=== PATIENT | female | born 1960 | race Two or more races ===

== ENCOUNTER 2017-05-12 15:25 | Emergency (ER) | payer OTHER ==
[~2017-05-12] VITALS: Ht 160 cm; Wt 58.5 kg
[2017-05-12 16:11] LABS: Albumin 3.7 g/dL (3.4-5.0); BUN/Creatinine Ratio 26.4; Bilirubin, Total 0.3 mg/dL (0.2-1.0); Calcium 8.4 mg/dL (8.5-10.1); Total Protein 8.1 g/dL (6.4-8.2)
[2017-05-12 16:20] LABS: Basophils # (auto) 0.1 uL; Basophils % (auto) 1.4 % (0.0-2.0); Eosinophils # (auto) 0.2 uL; Eosinophils % (auto) 4.2 % (0.0-7.0); Hematocrit 33.4 % (36.0-46.0); Lymphocytes # (auto) 1.9 uL; Lymphocytes % (auto) 35.9 % (10.0-50.0); Mean Corpuscular Hemoglobin 30.4 pg (28.0-32.0); Mean Corpuscular Hgb Conc. 33.1 g/dL (32.0-36.0); Mean Corpuscular Volume 91.9 fL (80.0-100.0); Monocytes # (auto) 0.4 uL; Monocytes % (auto) 7.3 % (0.0-12.0); Neutrophils # (auto) 2.7 uL; Neutrophils % (auto) 51.2 % (37.0-80.0); Nucleated Red Blood Cells % 0.1 %; Platelet Count (auto) 235 10^3/uL (140-450); Red Blood Cells 3.63 10^6/uL (4.0-5.20); Red Cell Distribution Width 13.3 % (11.8-14.3); White Blood Cell 5.3 10^3/uL (4.4-10.8)
[2017-05-12 17:40] VITALS: BP 105/44
== END 2017-05-12 18:18 | disposition home or self-care (01) ==
LOC: ER 15:34
DX: N28.9 Disorder of kidney and ureter, unspecified (principal); E11.9 Type 2 diabetes mellitus without complications
CPT/HCPCS: 36415; 71046; 80053; 85025; 93005

== ENCOUNTER 2018-02-13 10:16 | Emergency (ER) | payer OTHER ==
[~2018-02-13] VITALS: Ht 152.4 cm; Wt 59.9 kg
[2018-02-13 12:00] VITALS: BP 106/53
== END 2018-02-13 12:54 | disposition home or self-care (01) ==
LOC: ER 10:17
DX: S90.32XA Contusion of left foot, initial encounter (principal); E11.9 Type 2 diabetes mellitus without complications; W22.8XXA Striking against or struck by other objects, initial encounter; Y93.89 Activity, other specified; Y99.8 Other external cause status; Y92.89 Other specified places as the place of occurrence of the external cause
CPT/HCPCS: 73630

== ENCOUNTER 2019-03-05 07:35 | Emergency (ER) | payer OTHER ==
[~2019-03-05] VITALS: Ht 160 cm; Wt 64.4 kg
[2019-03-05 08:15] LABS: Basophils # (auto) 0 uL; Basophils % (auto) 0.6 % (0.0-2.0); Eosinophils # (auto) 0.2 uL; Eosinophils % (auto) 4.6 % (0.0-7.0); Hematocrit 36.1 % (36.0-46.0); Hemoglobin 12.2 g/dL (12.2-16.2); Lymphocytes # (auto) 1.4 uL; Lymphocytes % (auto) 36.6 % (10.0-50.0); Mean Corpuscular Hemoglobin 31.9 pg (28.0-32.0); Mean Corpuscular Hgb Conc. 33.8 g/dL (32.0-36.0); Mean Corpuscular Volume 94.4 fL (80.0-100.0); Monocytes # (auto) 0.4 uL; Monocytes % (auto) 9.4 % (0.0-12.0); Neutrophils # (auto) 1.9 uL; Neutrophils % (auto) 48.8 % (37.0-80.0); Nucleated Red Blood Cells % 0.1 %; Platelet Count (auto) 187 10^3/uL (140-450); Red Blood Cells 3.82 10^6/uL (4.0-5.20); Red Cell Distribution Width 14.1 % (11.8-14.3); White Blood Cell 3.9 10^3/uL (4.4-10.8)
[2019-03-05 08:31] LABS: Urine Bacteria NONE SEEN /hpf (None Seen); Urine Blood Negative /uL (Negative); Urine WBC <1 /hpf (0 - 5)
[2019-03-05] MEDS ORDERED: SODIUM CHLORIDE 0.9% 1,000 ML IV ONE (08:35)
[2019-03-05 08:42] LABS: Albumin 3.7 g/dL (3.4-5.0); BUN/Creatinine Ratio 20.7; Calcium 8.8 mg/dL (8.5-10.1); Potassium 4.7 mmol/L (3.5-5.1)
[2019-03-05 08:45] LABS: Bilirubin, Total 0.3 mg/dL (0.2-1.0); Total Protein 8.1 g/dL (6.4-8.2)
[2019-03-05] MEDS ORDERED: KETOROLAC TROMETH 30 MG/ML 1ML VIAL IV ONE (08:45)
[2019-03-05] MEDS ORDERED: METOCLOPRAMIDE HCL 5MG/ml INJ 2ml VIAL IV ONE (08:45)
[2019-03-05 10:04] VITALS: BP 135/42
== END 2019-03-05 10:25 | disposition home or self-care (01) ==
LOC: ER 07:35
DX: K80.20 Calculus of gallbladder without cholecystitis without obstruction (principal); E11.21 Type 2 diabetes mellitus with diabetic nephropathy; E78.5 Hyperlipidemia, unspecified
CPT/HCPCS: 36415; 71046; 76705; 80053; 81001; 82150; 83690; 83735; 85025; 93005; 96361; 96374; 96375; 99284; J1885; J2765

== ENCOUNTER 2019-03-19 08:36 | Emergency (ER) | payer OTHER ==
[~2019-03-19] VITALS: Ht 160 cm; Wt 64.4 kg
[2019-03-19 09:11] VITALS: BP 102/40
[2019-03-19] MEDS ORDERED: TETRACAINE HCL 0.5% OPTH(EYE) SOLN 4ML RIGHTEYE ONE (10:15)
[2019-03-19] MEDS ORDERED: FLUORESCEIN SOD 1 MG TEST STRIP RIGHTEYE ONE (10:15)
== END 2019-03-19 10:47 | disposition home or self-care (01) ==
LOC: ER 08:36
DX: B02.9 Zoster without complications (principal); R51 Headache

== ENCOUNTER 2023-10-15 15:35 | Emergency (ER) | payer OTHER, SELFPAY ==
[~2023-10-15] VITALS: Ht 160 cm; Wt 58.0 kg
[~2023-10-15 15:35] MED LIST: ATOR-47 PO; GLIP10TA9 PO; INSUINJ37 SC; PATI1POW PO
[2023-10-16] MEDS ORDERED: IBUP-1454 PO (00:22)
[2023-10-16 00:44] VITALS: BP 130/76; PULSE 74; RESP 17; TEMP 98.4; O2SAT 98
== END 2023-10-15 16:29 | disposition home or self-care (01) ==
LOC: ER 15:43
DX: S92.351A Displaced fracture of fifth metatarsal bone, right foot, initial encounter for closed fracture (principal); E11.9 Type 2 diabetes mellitus without complications; E78.5 Hyperlipidemia, unspecified; W22.8XXA Striking against or struck by other objects, initial encounter; Y93.89 Activity, other specified; Y92.89 Other specified places as the place of occurrence of the external cause; Y99.8 Other external cause status
CPT/HCPCS: 29515; 73630

== ENCOUNTER → 2024-06-06 | Outpatient (CLI) | payer OTHER ==
[~2024-06-06] MED LIST changes: +IBUP-1454 PO
[2024-06-06 13:49] LABS: Basophils # (auto) 0 10 ^3/uL (0-0.2); Basophils % (auto) 0.6 % (0.0-2.0); Eosinophils # (auto) 0.1 10 ^3/uL (0-0.8); Eosinophils % (auto) 2.5 % (0.0-7.0); Hematocrit 33.3 % (36.0-46.0); Hemoglobin 10.9 g/dL (12.2-16.2); Lymphocytes # (auto) 1.6 10 ^3/uL (0.4-5.4); Lymphocytes % (auto) 35.3 % (10.0-50.0); Mean Corpuscular Hemoglobin 30.1 pg (28.0-32.0); Mean Corpuscular Hgb Conc. 32.6 g/dL (32.0-36.0); Mean Corpuscular Volume 92.2 fL (80.0-100.0); Monocytes # (auto) 0.3 10 ^3/uL (0-1.3); Monocytes % (auto) 6.1 % (0.0-12.0); Neutrophils # (auto) 2.6 10 ^3/uL (1.6-8.6); Neutrophils % (auto) 55.5 % (37.0-80.0); Platelet Count (auto) 190 10^3/uL (140-450); Red Blood Cells 3.61 10^6/uL (4.0-5.20); Red Cell Distribution Width 12.7 % (11.8-14.3); White Blood Cell 4.7 10^3/uL (4.4-10.8)
[2024-06-06 14:17] LABS: Alanine Aminotransferase 12 U/L (7-40); Albumin 4.4 g/dL (3.2-4.8); Alkaline Phosphatase 114 U/L (46-116); Anion Gap 7 (5-15); BUN/Creatinine Ratio 16.1 (10.0-20.0); Bilirubin, Total 0.4 mg/dL (0.2-1.0); Calcium 9.4 mg/dL (8.7-10.4); Carbon Dioxide 28 mmol/L (20-31); Chloride 99 mmol/L (98-107); Total Protein 7.6 g/dL (5.7-8.2); Triglycerides 105 mg/dL (< 150)
[2024-06-06 14:19] LABS: Aspartate Aminotransferase 12 U/L (13-40); Blood Urea Nitrogen 35 mg/dL (9-23); Cholesterol 221 mg/dL (< 200); Glucose 259 mg/dL (74-106); HDL Cholesterol 79 mg/dL (40-59); LDL Cholesterol 127 mg/dL (< 100); Sodium 134 mmol/L (136-145)
[2024-06-06 14:34] LABS: Urine Bacteria FEW /hpf (None Seen); Urine Blood TRACE /uL (Negative); Urine Clarity Clear (Clear); Urine Color Light-Yellow (Yellow); Urine Protein, UAD 1+ (Negative); Urine Squamous Epithelial Cell FEW /hpf (<5); Urine Urobilinogen Normal (Negative); Urine WBC 11 /HPF (0-5); Urine pH 5.5 (5.0-9.0)
[2024-06-06 14:58] LABS: Uric Acid 6.3 mg/dL (3.1-7.8)
== END | disposition home or self-care (01) ==
LOC: LAB 13:26
PROVIDERS: ATTEND Family Medicine
DX: E11.8 Type 2 diabetes mellitus with unspecified complications (principal); E78.2 Mixed hyperlipidemia; K59.00 Constipation, unspecified; Z00.00 Encounter for general adult medical examination without abnormal findings
CPT/HCPCS: 36415; 80053; 80061; 81001; 82306; 82607; 83036; 83540; 83550; 83735; 84403; 84443; 84550; 85025; 87086

== ENCOUNTER 2024-06-20 08:11 | Inpatient (IN) | payer OTHER ==
[~2024-06-20] VITALS: Ht 160 cm; Wt 63.5 kg
[2024-06-20 09:06] VITALS: PULSE 74; RESP 16; O2SAT 97
[2024-06-20] MEDS: SODIUM CHLORIDE 0.9% 1,000 ML IV ONE ×2 (09:19→10:44)
[2024-06-20] MEDS: ACETAMINOPHEN 325 MG TAB PO ONE (09:19)
--- NOTE | 2024-06-20 09:25 | ED.PDOC ---
History of Present Illness HPI Comments 63 year old female presents to the ED with a chief complaint of pelvic pain onset 2 weeks. Patient states she began experiencing pelvic pain about 2 weeks ago, worsen today (06/20/24). Patient also noticed constipation, last bowel movement was about 3 days ago. PMHx DM, HLD. Denies nausea, vomiting, diarrhea, headache, dysuria, hematuria, frequency, chest pain, shortness of breath, fevers, chills. No other symptoms or modifying factors present at this time. Chief Complaint: Pelvic Pain Time Seen by MD: 09:08 Primary Care Provider: STEVIE Rodriguez Notes: Medications, Allergies Allergies: Coded Allergies: NO KNOWN ALLERGIES (Unverified , 01/05/20) Home Meds Active Scripts Ibuprofen (Ibuprofen) 600 Mg Tab, 1 TAB PO Q6HP PRN, #30 TAB Prov:STELLA BAILON PAC 10/16/23 Reported Medications Insulin Glargine (Lantus Solostar) 100 Unit/Ml Inj, 30 UNIT SC 01/06/20 Atorvastatin Calcium (ATORVASTATIN CALCIUM) 80 Mg Tab, 1 TAB PO DAILYPRN 01/06/20 Glipizide (Glipizide) 10 Mg Tab, 1 TAB PO BID 01/06/20 Patiromer Sorbitex Calcium (Veltassa) 8.4 Gm Pow, 1 PKT PO DAILYPRN 01/06/20 Information Source: Patient Mode of Arrival: Ambulatory Severity: Moderate Timing: Weeks Duration: Since onset Prehospital treatment: None Past Medical History PAST MEDICAL HISTORY: DM, High Lipids Surgical History: Denies all surgeries STORAGE GARAGE MANAGER History: No Pertinent STORAGE GARAGE MANAGER History Family History Family History: Reviewed,noncontributory to illness Social History Smoker: Non-Smoker Alcohol: Denies ETOH Use Drugs: Denies Drug Use Lives In: Home Constitutional: denies: chills, diaphoresis, fatigue, fever, malaise, sweats, weakness, others EENTM: denies: blurred vision, double vision, ear bleeding, ear discharge, ear drainage, ear pain, ear ringing, eye pain, eye redness, hearing loss, mouth pain, mouth swelling, nasal discharge, nose bleeding, nose congestion, nose pain, photophobia, tearing, throat pain, throat swelling, voice changes, others Respiratory: denies: cough, hemoptysis, orthopnea, SOB at rest, shortness of breath, SOB with excertion, stridor, wheezing, others Cardiovascular: denies: chest pain, dizzy spells, diaphoresis, Dyspnea on exertion, edema, irregular heart beat, left arm pain, lightheadedness, palpitations, PND, syncope, others Gastrointestinal: reports: abdominal pain (pelvic ), constipated, others (pelvic pain); denies: abdomen distended, blood streaked bowels, diarrhea, d ysphagia, difficulty swallowing, hematemesis, melena, nausea, poor appetite, poor fluid intake, rectal bleeding, rectal pain, vomiting Genitourinary: denies: abnormal vagina bleeding, burning, dyspareunia, dysuria, flank pain, frequency, hematuria, incontinence, pain, , vagina discharge, urgency, others Neurological: denies: dizziness, fainting, headache, left sided numbness, left sided weakness, numbness, paresthesia, pre-existing deficit, right sided num bness, right sided weakness, seizure, speech problems, tingling, tremors, weakness, others Musculoskeletal: denies: back pain, gout, joint pain, joint swelling, muscle pain, muscle stiffness, neck pain, others Integumetry: denies: bruises, change in color, change in hair/nails, dryness, laceration, lesions, lumps, rash, wounds, others Allergic/Immunocompromised: denies: Difficulty Healing, Frequent Infections, Hives, Itching, others Hematologic/Lymphatic: denies: anemia, blood clots, easy bleeding, easy bruising, swollen glands, others Endocrine: denies: excessive hunger, excessive sweating, excessive thirst, excessive urination, flushing, intolerance to cold, intolerance to heat, unexplained weight gain, unexplained weight loss, others Psychiatric: denies: anxiety, bipolar disorder, depression, hopeless, panic disorder, schizophrenia, sleepless, suicidal, others All Other Systems: Reviewed and Negative Physical Exam General Appearance: No Apparent Distress, Normal HEENT: Normal ENT Inspection, Pharynx Normal, TMs Normal Neck: Full Range of Motion, Non-Tender, Normal, Normal Inspection Respiratory: Chest Non-Tender, Lungs Clear, No Accessory Muscle Use, No Respiratory Distress, Normal Breath Sounds Cardiovascular: No Edema, No JVD, No Murmur, No Gallop, Normal Peripheral Pulses, Regular Rate/Rhythm Breast Exam: Deferred Gastrointestinal: No Organomegaly, Non Tender, No Pulsatile Mass, Normal Bowel Sounds, Soft, Other (L CVA Tenderness) Genitalia: Deferred Pelvic: Deferred Rectal: Deferred Extremities: No calf tenderness, Normal capillary refill, Normal inspection, Normal range of motion, Non-tender, No pedal edema Musculoskeletal : Apperance: Normal Neurologic: Alert, director fundraising II-XII nml as Tested, No Motor Deficits, Normal Affect, Normal Mood, No Sensory Deficits Cerebellar Function: Normal Reflexes: Normal Skin: Dry, Normal Color, Warm Lymphatic: No Adenopathy Was a procedure done? Was a procedure done?: No Differential Dx Considerations may include: Acute cystitis, viral syndrome, pyelonephritis X-Ray, Labs, Meds, VS Vital Signs Date Time Temp Pulse Resp B/P (MAP) Pulse Ox O2 Delivery O2 Flow Rate FiO2 06/20/24 09:06 74 16 172/84 (113) 97 06/20/24 09:06 74 16 97 Room Air* 0 21 06/20/24 08:20 97.9 77 18 119/46 (70) 96 Lab Test 06/20/24 09:23 06/20/24 08:16 Range/Units White Blood Count 3.7 L 4.4-10.8 10^3/uL Red Blood Count 3.42 L 4.0-5.20 10^6/uL Hemoglobin 10.6 L 12.2-16.2 g/dL Hematocrit 31.6 L 36.0-46.0 % Mean Corpuscular Volume 92.3 80.0-100.0 fL Mean Corpuscular Hemoglobin 30.8 28.0-32.0 pg Mean Corpuscular Hemoglobin Concent 33.4 32.0-36.0 g/dL Red Cell Distribution Width 12.6 11.8-14.3 % Platelet Count 192 140-450 10^3/uL Mean Platelet Volume 8.1 6.9-10.8 fL Neutrophils (%) (Auto) 49.8 37.0-80.0 % Lymphocytes (%) (Auto) 38.4 10.0-50.0 % Monocytes (%) (Auto) 7.8 0.0-12.0 % Eosinophils (%) (Auto) 3.1 0.0-7.0 % Basophils (%) (Auto) 0.9 0.0-2.0 % Neutrophils # (Auto) 1.9 1.6-8.6 10 ^3/uL Lymphocytes # (Auto) 1.4 0.4-5.4 10 ^3/uL Monocytes # (Auto) 0.3 0-1.3 10 ^3/uL Eosinophils # (Auto) 0.1 0-0.8 10 ^3/uL Basophils # (Auto) 0 0-0.2 10 ^3/uL Nucleated Red Blood Cells 0.1 % Sodium Level 133 L 136-145 mmol/L Potassium Level 5.0 3.5-5.1 mmol/L Chloride Level 100 98-107 mmol/L Carbon Dioxide Level 27 20-31 mmol/L Anion Gap 6 5-15 Blood Urea Nitrogen 32 H 9-23 mg/dL Creatinine 2.24 H 0.550-1.02 mg/dL Glomerular Filtration Rate Calc 24 >90 mL/min BUN/Creatinine Ratio 14.3 10.0-20.0 Serum Glucose 309 H 74-106 mg/dL Calcium Level 9.2 8.7-10.4 mg/dL Urine Color Colorless Yellow Urine Clarity Clear Clear Urine pH 6.0 5.0-9.0 Urine Specific [place] 1.007 1.001-1.035 Urine Protein Trace H Negative Urine Ketones Negative Negative Urine Blood Negative Negative /uL Urine Nitrite 2+ H Negative Urine Bilirubin Negative Negative Urine Urobilinogen Normal Negative mg/dL Urine Leukocyte Esterase 1+ Negative /uL Urine RBC 1 0 - 4 /hpf Urine Microscopic WBC 11 H 0-5 /HPF Urine Squamous Epithelial Cells None seen <5 /hpf Urine Bacteria Few H None Seen /hpf Urine Yeast (Budding) Occasional None Seen /hpf Urine Glucose 3+ H Normal mg/dL Current Medications Medications (Trade) Dose Ordered Sig/Lion Route Start Time Stop Time Status Last Admin Sodium Chloride 1,000 ml @ 1,000 mls/hr Q1H ONCE IV 06/20/24 09:15 06/20/24 10:14 DC 06/20/24 09:19 Acetaminophen (Tylenol Tablet) 650 mg ONCE ONCE PO 06/20/24 09:15 06/20/24 09:16 DC 06/20/24 09:19 Time of 1ST Reevaluation: 09:38 Reevaluation 1ST: Unchanged Patient Education/Counseling: Diagnosis, Treatment, Prognosis Family Education/Counseling: No Family Present Additional Information The following tests were ordered, and results were reviewed by me: BMP, CBC, UA I discussed treatment and results with medical personnel and: patient, Departure 1 Departure Time of Disposition: 10:19 (Patient with urinary tract infection with positive nitrites severe pain. Is concerning for pyelonephritis. We will admit patient for further workup) Impression: Primary Impression: Pyelonephritis Additional Impression: Suprapubic pain, acute Disposition: ADMITTED INPATIENT Admit to: Med Surg Condition: Serious Critical Care Note Critical Care Time?: No Stability Stability form required: No I personally scribed for BOBO BOURGEOIS MD ([email or web address]) on 06/20/24 at 09:25. Electronically submitted by Jaqueline Traore ([email or web address]). I personally scribed for BOBO BOURGEOIS MD ([email or web address]) on 06/20/24 at 09:49. Elec tronically submitted by Jaqueline Traore ([email or web address]). BOBO BOURGEOIS MD Jun 20, 2024 09:25
[2024-06-20 09:45] LABS: Basophils # (auto) 0 10 ^3/uL (0-0.2); Basophils % (auto) 0.9 % (0.0-2.0); Eosinophils # (auto) 0.1 10 ^3/uL (0-0.8); Eosinophils % (auto) 3.1 % (0.0-7.0); Hematocrit 31.6 % (36.0-46.0); Hemoglobin 10.6 g/dL (12.2-16.2); Lymphocytes # (auto) 1.4 10 ^3/uL (0.4-5.4); Lymphocytes % (auto) 38.4 % (10.0-50.0); Mean Corpuscular Hemoglobin 30.8 pg (28.0-32.0); Mean Corpuscular Hgb Conc. 33.4 g/dL (32.0-36.0); Mean Corpuscular Volume 92.3 fL (80.0-100.0); Monocytes # (auto) 0.3 10 ^3/uL (0-1.3); Monocytes % (auto) 7.8 % (0.0-12.0); Neutrophils # (auto) 1.9 10 ^3/uL (1.6-8.6); Neutrophils % (auto) 49.8 % (37.0-80.0); Nucleated Red Blood Cells % 0.1 %; Platelet Count (auto) 192 10^3/uL (140-450); Red Blood Cells 3.42 10^6/uL (4.0-5.20); Red Cell Distribution Width 12.6 % (11.8-14.3); White Blood Cell 3.7 10^3/uL (4.4-10.8)
[2024-06-20 09:46] LABS: Urine Bacteria FEW /hpf (None Seen); Urine Blood Negative /uL (Negative); Urine Budding Yeast OCCASIONAL /hpf (None Seen); Urine Clarity Clear (Clear); Urine Color Colorless (Yellow); Urine Protein, UAD TRACE (Negative); Urine Specific Gravity 1.007 (1.001-1.035); Urine Squamous Epithelial Cell None Seen /hpf (<5); Urine Urobilinogen Normal (Negative); Urine WBC 11 /HPF (0-5)
[2024-06-20 09:54] LABS: Chloride 100 mmol/L (98-107)
[2024-06-20 09:55] LABS: Anion Gap 6 (5-15); Calcium 9.2 mg/dL (8.7-10.4); Carbon Dioxide 27 mmol/L (20-31)
[2024-06-20 10:00] LABS: BUN/Creatinine Ratio 14.3 (10.0-20.0)
[2024-06-20 10:02] LABS: Blood Urea Nitrogen 32 mg/dL (9-23); Glucose 309 mg/dL (74-106); Sodium 133 mmol/L (136-145)
--- NOTE | 2024-06-20 10:39 | DVH ---
Exam: XY KUB ABDOMEN SINGLE VIEW Indication: abdominal pain Comparison: None Technique: 1 radiographic views of the abdomen. Findings: Large volume colonic stool. Nonobstructive bowel gas pattern noted. There is no definite evidence for pneumoperitoneum. No abnormal calcifications noted. Impression: Large volume colonic stool.
[2024-06-20] MEDS: CEFEPIME 2GM/50ML NS 50 ML IV ONE (10:47)
[2024-06-20] MEDS: POLYETHYLENE GLYCOL 17 GM PWDR PO ONE (11:13)
[2024-06-20] MEDS ORDERED: ACETAMINOPHEN 325 MG TAB PO PRN (11:30)
[2024-06-20] MEDS ORDERED: DEXTROSE (50%) 50ML SYRG IV PRN (11:30)
[2024-06-20] MEDS ORDERED: ONDANSETRON HCL 4 MG/2 ML VIAL IV PRN (11:30)
[2024-06-20] MEDS ORDERED: GLYCERIN ADULT RECTAL SUPP PR ONE (11:30)
--- NOTE | 2024-06-20 11:45 | DVHHP2 ---
History of Present Illness Reason for Visit: Pelvic pain History of Present Illness Ann Briseno is a 63-year-old female with past medical history of diabetes, and hyperlipidemia however she states she is not taking any cholesterol medications, who came to the hospital for pelvic pain. Patient states she has been having pelvic pain for about 3 weeks. She went to her primary care provider on 06/14/2024, she was prescribed Colace, and Levaquin, but never didn't get the medications until yesterday and has not started taking them. She came to the hospital today due to her pain increasing. While in the ER her blood sugars were >300. She states she was also prescribed insulin a while back, but never picked up the medication. Cardiovascular: hyperipidemia Endocrine: Diabetes Past Surgical History: Appendectomy Review of Systems Constitutional: No: Fever, Chills, Sweats, Weakness, Malaise, Other Eyes: No: Pain, Vision change, Conjunctivae inflammation, Eyelid inflammation, Other, Redness ENT: No: Ear pain, Ear discharge, Nose pain, Nose discharge, Nose congestion, Mouth pain, Mouth swelling, Throat pain, Throat swelling, Other Respiratory: No: Cough, Dry, Shortness of breath, SOB with excertion, Wheezing, Hemoptysis, Pleuritic Pain, Sputum, Wheezing, Other Cardiovascular: No: Chest Pain, Palpitations, Orthopnea, Paroxysmal Noc. Dyspnea, Edema, Lt Headedness, Other Gastrointestinal: No: Nausea, Vomiting, Abdominal Pain, Diarrhea, Constipation, Melena, Hematochezia, Other Genitourinary: Dysuria; No Frequency, No Incontinence, No Hematuria, No Retention; Other (pelvic pain) Musculoskeletal: No: other, neck pain, shoulder pain, arm pain, back pain, hand pain, leg pain, foot pain Skin: No: Rash, Lesions, Jaundice, Bruising, Other Neurological: No: Weakness, Numbness, Incoordination, Change in speech, Confusion, Seizures, Other Allergies: Coded Allergies: NO KNOWN ALLERGIES (Unverified , 01/05/20) Exam Vital Signs Vital Signs Date Time Temp Pulse Resp B/P (MAP) Pulse Ox O2 Delivery O2 Flow Rate FiO2 06/20/24 09:06 74 16 172/84 (113) 97 06/20/24 09:06 Room Air* 0 21 06/20/24 08:20 97.9 General Appearance: Alert, Oriented X3, Cooperative, moderate distress HEENT: Atraumatic, Other (Blind in left eye) Respiratory: Clear to auscultation, Normal air movement Cardiovascular: Regular rate, Normal S1, Normal S2, No murmurs Abdominal: Normal bowel sounds, Soft, Other (Pelvic pain) Extremities: No clubbing, No cyanosis, No edema, Normal pulses Skin: No rashes, No breakdown, No significant lesion Neuro: Normal gait, Normal speech, Strength at 5/5 X4 ext Psych/Mental Status: Mood NL Labs/Xrays Labs Test 06/20/24 10:50 06/20/24 09:23 06/20/24 08:16 Range/Units White Blood Count 3.7 L 4.4-10.8 10^3/uL Red Blood Count 3.42 L 4.0-5.20 10^6/uL Hemoglobin 10.6 L 12.2-16.2 g/dL Hematocrit 31.6 L 36.0-46.0 % Mean Corpuscular Volume 92.3 80.0-100.0 fL Mean Corpuscular Hemoglobin 30.8 28.0-32.0 pg Mean Corpuscular Hemoglobin Concent 33.4 32.0-36.0 g/dL Red Cell Distribution Width 12.6 11.8-14.3 % Platelet Count 192 140-450 10^3/uL Mean Platelet Volume 8.1 6.9-10.8 fL Neutrophils (%) (Auto) 49.8 37.0-80.0 % Lymphocytes (%) (Auto) 38.4 10.0-50.0 % Monocytes (%) (Auto) 7.8 0.0-12.0 % Eosinophils (%) (Auto) 3.1 0.0-7.0 % Basophils (%) (Auto) 0.9 0.0-2.0 % Neutrophils # (Auto) 1.9 1.6-8.6 10 ^3/uL Lymphocytes # (Auto) 1.4 0.4-5.4 10 ^3/uL Monocytes # (Auto) 0.3 0-1.3 10 ^3/uL Eosinophils # (Auto) 0.1 0-0.8 10 ^3/uL Basophils # (Auto) 0 0-0.2 10 ^3/uL Nucleated Red Blood Cells 0.1 % Sodium Level 133 L 136-145 mmol/L Potassium Level 5.0 3.5-5.1 mmol/L Chloride Level 100 98-107 mmol/L Carbon Dioxide Level 27 20-31 mmol/L Anion Gap 6 5-15 Blood Urea Nitrogen 32 H 9-23 mg/dL Creatinine 2.24 H 0.550-1.02 mg/dL Glomerular Filtration Rate Calc 24 >90 mL/min BUN/Creatinine Ratio 14.3 10.0-20.0 Serum Glucose 309 H 74-106 mg/dL Calcium Level 9.2 8.7-10.4 mg/dL Urine Color Colorless Yellow Urine Clarity Clear Clear Urine pH 6.0 5.0-9.0 Urine Specific [place] 1.007 1.001-1.035 Urine Protein Trace H Negative Urine Ketones Negative Negative Urine Blood Negative Negative /uL Urine Nitrite 2+ H Negative Urine Bilirubin Negative Negative Urine Urobilinogen Normal Negative mg/dL Urine Leukocyte Esterase 1+ Negative /uL Urine RBC 1 0 - 4 /hpf Urine Microscopic WBC 11 H 0-5 /HPF Urine Squamous Epithelial Cells None seen <5 /hpf Urine Bacteria Few H None Seen /hpf Urine Yeast (Budding) Occasional None Seen /hpf Urine Glucose 3+ H Normal mg/dL Exam: XY KUB ABDOMEN SINGLE VIEW Findings: Large volume colonic stool. Nonobstructive bowel gas pattern noted. There is no definite evidence for pneumoperitoneum. No abnormal calcifications noted. Impression: Large volume colonic stool. Assessment/Plan Assessment/Plan Assessment: Pyelonephritis, Complicated UTI, Constipation, Acute on chronic kidney disease, Hyperglycemia, Uncontrolled diabetes, Plan: Admit to Med-Surg, IV antibiotics, IV hydration, Suppository, Accu checks Q AC&HS with sliding scale, A1c, Home medications reconciled, Consider GI consult if constipation does not improve, Plan discussed with: Patient My Orders Orders - GISSELLE MONTES Procedure Category Date Status Time Admit ADMIT 06/20/24 Transmitted 11:27 Code Status CODE 06/20/24 Transmitted 11:27 2 Gm Sodium Diet DIET 06/20/24 Transmitted Lunch Hydrocodone-Acet PHA 06/20/24 Transmitted 5/325mg Tab ([place] 11:30 Ondansetron Hcl PHA 06/20/24 Transmitted (Zofran) 11:30 Docusate Sodium PHA 06/20/24 Transmitted Capsule (Colace 11:30 Complete Blood Count LAB 06/21/24 Verified 04:00 Comprehensive LAB 06/21/24 Verified Metabolic Panel 04:00 Condition: Serious CLARICE 06/20/24 In Process 11:27 Acetaminophen Tablet PHA 06/20/24 Transmitted (Tylenol Tablet) 11:30 Glycerin Adult PHA 06/20/24 Transmitted Suppository (Glycerin 11:30 Ceftriaxone Ivpb PHA 06/21/24 Transmitted Rocephin 09:00 NS PHA 06/20/24 Transmitted 11:30 Glucose Blood PHA 06/20/24 Transmitted (Accu-Chek Comfort 11:30 Bedtime Insulin Scale PHA 06/20/24 Transmitted 22:00 Moderate Insulin Ss PHA 06/20/24 Transmitted 11:30 Dextrose 50% Syringe PHA 06/20/24 Transmitted 11:30 Date of Service: Jun 20, 2024 Billing Provider: GISSELLE MONTES Common Visit Codes: [id number] INP/OBS CARE (MOD) GISSELLE MONTES Jun 20, 2024 11:45
[2024-06-20] MEDS: ACCU-CHEK COMFORT CURVE STRIP VI SCH (13:28)
[2024-06-20] MEDS: InsuLIN REG 1unit/0.01ml Soln (100units/ml) SC SCH ×2 (13:31→22:20)
[2024-06-20 18:43] VITALS: BP 167/96; PULSE 76; RESP 18; TEMP 98.3; O2SAT 96
[2024-06-20] MEDS ORDERED: cloNIDine 0.1 mg/24hr 7 DAY PATCH TD ONE (19:15)
[2024-06-20] MEDS: cloNIDine HCL 0.1 MG TAB PO ONE (20:08)
[2024-06-20] MEDS ORDERED: LEVO250T58 (20:12)
[2024-06-20] MEDS: hydrALAZINE HCL 20 MG/ML VL IV ONE (21:23)
[2024-06-20] MEDS: glipiZIDE 5 MG TAB PO SCH (22:11)
[2024-06-21 01:00] VITALS: BP 102/48; PULSE 65; RESP 18; TEMP 97.7; O2SAT 94
[2024-06-21] MEDS: SODIUM CHLORIDE 0.9% 1,000 ML IV SCH ×2 (03:17→13:42)
[2024-06-21 05:00] VITALS: BP 98/54; PULSE 66; RESP 20; TEMP 98.1; O2SAT 95
[2024-06-21 06:50] LABS: Basophils # (auto) 0 10 ^3/uL (0-0.2); Basophils % (auto) 0.5 % (0.0-2.0); Eosinophils # (auto) 0.2 10 ^3/uL (0-0.8); Eosinophils % (auto) 3.6 % (0.0-7.0); Hematocrit 30.2 % (36.0-46.0); Lymphocytes # (auto) 1.8 10 ^3/uL (0.4-5.4); Lymphocytes % (auto) 40.9 % (10.0-50.0); Mean Corpuscular Hemoglobin 30.7 pg (28.0-32.0); Mean Corpuscular Hgb Conc. 33.2 g/dL (32.0-36.0); Mean Corpuscular Volume 92.6 fL (80.0-100.0); Monocytes # (auto) 0.4 10 ^3/uL (0-1.3); Monocytes % (auto) 9.1 % (0.0-12.0); Neutrophils % (auto) 45.9 % (37.0-80.0); Nucleated Red Blood Cells % 0.1 %; Platelet Count (auto) 178 10^3/uL (140-450); Red Blood Cells 3.26 10^6/uL (4.0-5.20); Red Cell Distribution Width 12.8 % (11.8-14.3); White Blood Cell 4.4 10^3/uL (4.4-10.8)
[2024-06-21 07:04] LABS: Albumin 3.7 g/dL (3.2-4.8); Alkaline Phosphatase 84 U/L (46-116); Anion Gap 6 (5-15); Aspartate Aminotransferase 14 U/L (13-40); BUN/Creatinine Ratio 16.5 (10.0-20.0); Bilirubin, Total 0.3 mg/dL (0.2-1.0); Calcium 9.2 mg/dL (8.7-10.4); Carbon Dioxide 28 mmol/L (20-31); Chloride 105 mmol/L (98-107); Glucose 80 mg/dL (74-106); Sodium 139 mmol/L (136-145); Total Protein 6.6 g/dL (5.7-8.2)
[2024-06-21 07:08] LABS: Alanine Aminotransferase 9 U/L (7-40); Blood Urea Nitrogen 33 mg/dL (9-23)
[2024-06-21 09:00] VITALS: BP 129/75; PULSE 70; RESP 18; TEMP 97.8; O2SAT 96
[2024-06-21] MEDS: cefTRIAXone 1GM/50ML D5W 50 ML IV SCH (10:17)
--- NOTE | 2024-06-21 11:55 | DVHPN2 ---
Reviewed: Care Plan, H&P, Labs, Medications, Previous Orders, Radiology Changes from previous H/P or p: No Changes Eyes: No Pain, No Vision change, No Conjunctivae inflammation, No Eyelid inflammation, No Other, No Redness ENT: No Ear pain, No Ear discharge, No Nose pain, No Nose discharge, No Nose congestion, No Mouth pain, No Mouth swelling, No Throat pain, No Throat swelling, No Other Cardiovascular: No Chest Pain, No Palpitations, No Orthopnea, No Paroxysmal Noc. Dyspnea, No Edema, No Lt Headedness, No Other Respiratory: No Cough, No Dry, No Shortness of breath, No SOB with excertion, No Wheezing, No Hemoptysis, No Pleuritic Pain, No Sputum, No Other Gastrointestinal: No Nausea, No Vomiting, No Abdominal Pain, No Diarrhea, No Constipation, No Melena, No Hematochezia, No Other Genitourinary: Dysuria; No Frequency, No Incontinence, No Hematuria, No Retention; Other (pelvic pain) Musculoskeletal: No other, No neck pain, No shoulder pain, No arm pain, No back pain, No hand pain, No leg pain, No foot pain Skin: No Rash, No Lesions, No Jaundice, No Bruising, No Other Objective Vitals Vital Signs Date Time Temp Pulse Resp B/P (MAP) Pulse Ox O2 Delivery O2 Flow Rate FiO2 06/21/24 09:00 97.8 70 18 129/75 (93) 96 97.8 06/20/24 20:10 Room Air* 0 21 Intake/Output Intake and Output 06/21/24 07:00 Intake Total 2112.5 ml Balance 2112.5 ml Intake Oral 100 ml IV Total 2012.5 ml # Voids 2 Medications Current Medications Medications Dose Ordered Sig/Lion Route Start Time Stop Time Status Last Admin Dose Admin Acetaminophen/ Hydrocodone Bitart 1 tab Q4HP PRN PO 06/20/24 11:30 Ondansetron HCl 4 mg Q4HP PRN IV 06/20/24 11:30 Docusate Sodium 100 mg BIDPRN PRN PO 06/20/24 11:30 Acetaminophen 650 mg Q6HP PRN PO 06/20/24 11:30 Ceftriaxone Sodium 50 ml @ 100 mls/hr DAILY@09 IV 06/21/24 09:00 06/21/24 10:17 100 MLS/HR Sodium Chloride 1,000 ml @ 75 mls/hr [id number] IV 06/20/24 11:30 06/21/24 03:17 75 MLS/HR Diagnostic Test (Pha) 1 strip ACHS 06/20/24 11:30 06/21/24 11:52 1 STRIP Insulin Human Regular HS SC 06/20/24 22:00 06/20/24 22:20 6 UNITS Insulin Human Regular AC SC 06/20/24 11:30 06/20/24 13:31 6 UNITS Dextrose 50 ml UD PRN IV 06/20/24 11:30 Glipizide 10 mg BID PO 06/20/24 22:00 06/21/24 10:18 10 MG Lactulose 30 ml DAILY PRN PO 06/20/24 11:45 Laboratory Results Laboratory Tests 06/21/24 05:34 Chemistry Test 06/21/24 05:34 Albumin 3.7 g/dL (3.2-4.8) Calcium Level 9.2 mg/dL (8.7-10.4) Total Protein 6.6 g/dL (5.7-8.2) LFT Test 06/21/24 05:34 Alanine Aminotransferase (ALT) 9 U/L (7-40) Alkaline Phosphatase 84 U/L (46-116) Aspartate Amino Transferase (AST) 14 U/L (13-40) Total Bilirubin 0.3 mg/dL (0.2-1.0) Urinalysis Test 06/20/24 08:16 Urine Color Colorless (Yellow) Urine Clarity Clear (Clear) Urine pH 6.0 (5.0-9.0) Urine Specific [place] 1.007 (1.001-1.035) Urine Protein Trace (Negative) H Urine Ketones Negative (Negative) Urine Blood Negative /uL (Negative) Urine Nitrite 2+ (Negative) H Urine Bilirubin Negative (Negative) Urine Urobilinogen Normal mg/dL (Negative) Urine Leukocyte Esterase 1+ /uL (Negative) Urine RBC 1 /hpf (0 - 4) Urine Microscopic WBC 11 /HPF (0-5) H Urine Squamous Epithelial Cells None seen /hpf (<5) Urine Bacteria Few /hpf (None Seen) H Urine Yeast (Budding) Occasional /hpf (None Urine Glucose 3+ mg/dL (Normal) H Microbiology Microbiology Date/Time Source Procedure Growth Status 06/20/24 10:50 Blood Blood Culture - Preliminary NO GROWTH AFTER 24 HOURS OF INCUBATION. Resulted Labs and/or images reviewed: Labs reviewed by me, Image(s) reviewed by me Assessment/Plan Assessment/Plan Acute abdominal pain Acute pyelonephritis Acute urinary tract infection: Cultures negative Urine cultures pending Rocephin Diabetes Hypercholesterolemia Constipation: Lactulose CT abdomen pelvis without contrast pending Lipase ordered Plan discussed with: Patient Date of Service: Jun 21, 2024 Billing Provider: PAUL POLANCO MD Common Visit Codes: [id number] INP/OBS CARE(HIGH) PAUL POLANCO MD Jun 21, 2024 11:55
[2024-06-21 13:00] VITALS: BP 138/76; PULSE 75; RESP 18; TEMP 98.1; O2SAT 96
--- NOTE | 2024-06-21 14:22 | DVH ---
Exam: CT CT AB PEL WO CON-NO ORAL OR IV History: Acute abdominal pain Comparison Study: None Technique: Multidetector spiral CT of the abdomen was performed from lung bases to pubic symphysis. I maging was performed without IV contrast. Axial, coronal and sagittal multiplanar reformats were obta ined from the axial data set by the technologist. Radiation Dose : 1. Abdomen/Pelvis: CTDIvol 5.61 mGy, DLP 295.08 mGy*cm. Findings: Evaluation of solid organs is limited due to lack of intravenous contrast use. Lung Bases: Cardiomegaly. Dependent atelectasis. Liver: The liver is normal in size. No focal lesions. Gallbladder and Biliary Tree: Post cholecystectomy. Spleen: Unremarkable Pancreas: The pancreas is grossly normal in appearance. Adrenal Glands: Unremarkable Kidneys: Kidneys are grossly normal without calculi or hydronephrosis. Bladder: Grossly unremarkable for degree of distention. Bowel: Mildly distended stomach. Nonspecific bowel-gas pattern with mild diffuse fluid-filled distent ion of small-bowel loops. Small bowel containing left inguinal hernia. Moderate volume colonic stool. The appendix is not visualized; however, no secondary findings of acute appendicitis identified. Ascites: Absent Lymphadenopathy: No mesenteric, retroperitoneal or periportal lymphadenopathy. Abdominal Wall and Mesentery: Small bowel containing left inguinal hernia. Vasculature: The visualized abdominal aorta is normal in size and caliber. There is extensive athero sclerotic calcification of the aorta and its branches. Evaluation of abdominal and pelvic vessels is limited due to lack of intravenous contrast. Pelvic Organs: Unremarkable Musculoskeletal: No aggressive focal bony lesions, acute fractures or dislocation. IMPRESSION: Nonspecific bowel-gas pattern with decompressed bowel loop extending into a left inguinal hernia. Fin dings may represent partial or early small bowel obstruction with transition point at the left inguin al hernia. Clinical correlation advised. Moderate volume colonic stool. Radiation optimization: All CT scans at this facility use at least one of these dose optimization kyleigh hniques: automated exposure control mA and/or kV adjustment per patient size (includes targeted exam s where dose is matched to clinical indication) or iterative reconstruction.
--- NOTE | 2024-06-21 16:48 | DVHINCON2 ---
Date of service: Jun 21, 2024 Family History: Diabetes mellitus PATERNAL GRANDMOTHER Allergies: Coded Allergies: NO KNOWN ALLERGIES (Unverified , 01/05/20) Home Meds Active Scripts Ibuprofen (Ibuprofen) 600 Mg Tab, 1 TAB PO Q6HP PRN, #30 TAB Prov:STELLA BAILON PAC 10/16/23 Reported Medications Levofloxacin Hemihydrate (LEVOFLOXACIN) 250 Mg Tab, 1 DAILY 06/20/24 Insulin Glargine (Lantus Solostar) 100 Unit/Ml Inj, 30 UNIT SC 01/06/20 Atorvastatin Calcium (ATORVASTATIN CALCIUM) 80 Mg Tab, 1 TAB PO DAILYPRN 01/06/20 Glipizide (Glipizide) 10 Mg Tab, 1 TAB PO BID 01/06/20 Patiromer Sorbitex Calcium (Veltassa) 8.4 Gm Pow, 1 PKT PO DAILYPRN 01/06/20 Current Medications Current Medications Medications (Trade) Dose Ordered Sig/Lion Route PRN Reason Start Time Stop Time Status Last Admin Ceftriaxone Sodium 50 ml @ 100 mls/hr DAILY@09 IV 06/21/24 09:00 06/21/24 10:17 Insulin Human Regular (InsuLIN R) HS SC 06/20/24 22:00 06/20/24 22:20 Glipizide (Glucotrol Tablet) 10 mg BID PO 06/20/24 22:00 06/21/24 10:18 Sodium Chloride 1,000 ml @ 150 mls/hr Q6H40M IV 06/21/24 13:00 06/21/24 13:42 Vital Signs Vital Signs Date Time Temp Pulse Resp B/P (MAP) Pulse Ox O2 Delivery O2 Flow Rate FiO2 06/21/24 13:00 98.1 75 18 138/76 (96) 96 98.1 06/21/24 08:00 Room Air* 0 21 Labs/Diagnostic Data Labs Test 06/21/24 11:47 06/21/24 05:34 06/20/24 10:50 06/20/24 08:16 Range/Units POC Glucose 233 H 70-106 mg/dl White Blood Count 4.4 4.4-10.8 10^3/uL Red Blood Count 3.26 L 4.0-5.20 10^6/uL Hemoglobin 10.0 L 12.2-16.2 g/dL Hematocrit 30.2 L 36.0-46.0 % Mean Corpuscular Volume 92.6 80.0-100.0 fL Mean Corpuscular Hemoglobin 30.7 28.0-32.0 pg Mean Corpuscular Hemoglobin Concent 33.2 32.0-36.0 g/dL Red Cell Distribution Width 12.8 11.8-14.3 % Platelet Count 178 140-450 10^3/uL Mean Platelet Volume 8.3 6.9-10.8 fL Neutrophils (%) (Auto) 45.9 37.0-80.0 % Lymphocytes (%) (Auto) 40.9 10.0-50.0 % Monocytes (%) (Auto) 9.1 0.0-12.0 % Eosinophils (%) (Auto) 3.6 0.0-7.0 % Basophils (%) (Auto) 0.5 0.0-2.0 % Neutrophils # (Auto) 2.0 1.6-8.6 10 ^3/uL Lymphocytes # (Auto) 1.8 0.4-5.4 10 ^3/uL Monocytes # (Auto) 0.4 0-1.3 10 ^3/uL Eosinophils # (Auto) 0.2 0-0.8 10 ^3/uL Basophils # (Auto) 0 0-0.2 10 ^3/uL Nucleated Red Blood Cells 0.1 % Sodium Level 139 # 136-145 mmol/L Potassium Level 5.0 3.5-5.1 mmol/L Chloride Level 105 98-107 mmol/L Carbon Dioxide Level 28 20-31 mmol/L Anion Gap 6 5-15 Blood Urea Nitrogen 33 H 9-23 mg/dL Creatinine 2.00 H 0.550-1.02 mg/dL Glomerular Filtration Rate Calc 27 >90 mL/min BUN/Creatinine Ratio 16.5 10.0-20.0 Serum Glucose 80 74-106 mg/dL Calcium Level 9.2 8.7-10.4 mg/dL Total Bilirubin 0.3 0.2-1.0 mg/dL Aspartate Amino Transferase (AST) 14 13-40 U/L Alanine Aminotransferase (ALT) 9 7-40 U/L Alkaline Phosphatase 84 46-116 U/L Total Protein 6.6 5.7-8.2 g/dL Albumin 3.7 3.2-4.8 g/dL Lipase 41 12-53 U/L Lactic Acid Level 0.5 0.4-2.0 mmol/L Urine Color Colorless Yellow Urine Clarity Clear Clear Urine pH 6.0 5.0-9.0 Urine Specific [place] 1.007 1.001-1.035 Urine Protein Trace H Negative Urine Ketones Negative Negative Urine Blood Negative Negative /uL Urine Nitrite 2+ H Negative Urine Bilirubin Negative Negative Urine Urobilinogen Normal Negative mg/dL Urine Leukocyte Esterase 1+ Negative /uL Urine RBC 1 0 - 4 /hpf Urine Microscopic WBC 11 H 0-5 /HPF Urine Squamous Epithelial Cells None seen <5 /hpf Urine Bacteria Few H None Seen /hpf Urine Yeast (Budding) Occasional None Seen /hpf Urine Glucose 3+ H Normal mg/dL Microbiology Date/Time Source Procedure Growth Status 06/20/24 10:50 Blood Blood Culture - Preliminary NO GROWTH AFTER 24 HOURS OF INCUBATION. Resulted Assessment [id number] AFEBRILE VSS LOWER ABD PAIN IS LESS ABD SOFT NO CLINICAL INCARCERATED/STRANGULATED LEFT OR RIGHT INGUINAL HERNIA BM + FLATUS + NO INDICATION FOR URGENT SURGERY CONTINUE CLOSE OBSERVATION Plan discussed with: Patient ANGELO MOE MD Jun 21, 2024 16:48
[2024-06-21 17:00] VITALS: BP 110/63; PULSE 77; RESP 18; TEMP 97.7; O2SAT 96
--- NOTE | 2024-06-21 17:03 | DVHINCON2 ---
DATE OF CONSULTATION: 06/21/2024 HISTORY OF PRESENT ILLNESS: This patient is 63 years old coming in with abdominal pain, both right and lower quadrant, but currently feeling much better. No nausea, vomiting. No constipation or diarrhea. She had a bowel movement this morning, is a small amount and she is passing flatus. No hematemesis or melena. No bleeding per rectum. PAST MEDICAL HISTORY: Diabetes. PAST SURGICAL HISTORY: Appendectomy. PHYSICAL EXAMINATION: VITAL SIGNS: Afebrile, stable signs. HEENT: With no evidence of pallor, cyanosis, or jaundice. NECK: Supple, nontender with no thyromegaly or lymphadenopathy. CHEST AND LUNGS: Clear. HEART: Within normal limits. ABDOMEN: Soft, benign and nontender. She does have mild tenderness in the left and the right groin. There is no evidence of any incarcerated or strangulated hernia clinically and radiologically. CLINICAL IMPRESSION: Rule out ileus with a small-bowel obstruction that could be resolving based upon reduction of the left inguinal hernia. PLAN: The plan will be to continue close observation and if the bowel obstruction resolves, then she can be given a diet. MD HALEY Desai/ALEJANDRO TID: [id number] RECEIPT: [id number] cc: Neeraj Byrne MD
[2024-06-21 21:00] VITALS: BP 124/68; PULSE 80; RESP 17; TEMP 98; O2SAT 95
[2024-06-22 01:00] VITALS: BP 143/77; PULSE 75; RESP 20; TEMP 97.7; O2SAT 91
[2024-06-22] MEDS: HYDROcodone-ACET 5/325MG TAB PO PRN (04:09)
[2024-06-22 05:00] VITALS: BP 128/71; PULSE 80; RESP 20; TEMP 98.6; O2SAT 96
--- NOTE | 2024-06-22 08:36 | DVHPN2 ---
Reviewed: Care Plan, H&P, Labs, Medications, Previous Orders, Radiology Changes from previous H/P or p: No Changes Eyes: No Pain, No Vision change, No Conjunctivae inflammation, No Eyelid inflammation, No Other, No Redness ENT: No Ear pain, No Ear discharge, No Nose pain, No Nose discharge, No Nose congestion, No Mouth pain, No Mouth swelling, No Throat pain, No Throat swelling, No Other Cardiovascular: No Chest Pain, No Palpitations, No Orthopnea, No Paroxysmal Noc. Dyspnea, No Edema, No Lt Headedness, No Other Respiratory: No Cough, No Dry, No Shortness of breath, No SOB with excertion, No Wheezing, No Hemoptysis, No Pleuritic Pain, No Sputum, No Other Gastrointestinal: No Nausea, No Vomiting, No Abdominal Pain, No Diarrhea, No Constipation, No Melena, No Hematochezia, No Other Genitourinary: Dysuria; No Frequency, No Incontinence, No Hematuria, No Retention; Other (pelvic pain) Musculoskeletal: No other, No neck pain, No shoulder pain, No arm pain, No back pain, No hand pain, No leg pain, No foot pain Skin: No Rash, No Lesions, No Jaundice, No Bruising, No Other Objective Vitals Vital Signs Date Time Temp Pulse Resp B/P (MAP) Pulse Ox O2 Delivery O2 Flow Rate FiO2 06/22/24 05:00 98.6 80 20 128/71 (90) 96 98.6 06/21/24 20:00 Room Air* 0 21 Intake/Output Intake and Output 06/22/24 07:00 Intake Total 2050 ml Output Total 800 ml Balance 1250 ml Intake Oral 1000 ml IV Total 1050 ml Output Urine Total 800 ml # Voids 3 # Bowel Movements 1 Medications Current Medications Medications Dose Ordered Sig/Lion Route Start Time Stop Time Status Last Admin Dose Admin Acetaminophen/ Hydrocodone Bitart 1 tab Q4HP PRN PO 06/20/24 11:30 06/22/24 04:09 1 TAB Ondansetron HCl 4 mg Q4HP PRN IV 06/20/24 11:30 Docusate Sodium 100 mg BIDPRN PRN PO 06/20/24 11:30 Acetaminophen 650 mg Q6HP PRN PO 06/20/24 11:30 Ceftriaxone Sodium 50 ml @ 100 mls/hr DAILY@09 IV 06/21/24 09:00 06/21/24 10:17 100 MLS/HR Diagnostic Test (Pha) 1 strip ACHS 06/20/24 11:30 06/22/24 06:17 1 STRIP Insulin Human Regular HS SC 06/20/24 22:00 06/20/24 22:20 6 UNITS Insulin Human Regular AC SC 06/20/24 11:30 06/21/24 12:06 6 UNITS Dextrose 50 ml UD PRN IV 06/20/24 11:30 Glipizide 10 mg BID PO 06/20/24 22:00 06/21/24 10:18 10 MG Lactulose 30 ml DAILY PRN PO 06/20/24 11:45 Sodium Chloride 1,000 ml @ 150 mls/hr Q6H40M IV 06/21/24 13:00 06/21/24 21:21 150 MLS/HR Laboratory Results Laboratory Tests 06/21/24 05:34 Urinalysis Test 06/20/24 08:16 Urine Color Colorless (Yellow) Urine Clarity Clear (Clear) Urine pH 6.0 (5.0-9.0) Urine Specific [place] 1.007 (1.001-1.035) Urine Protein Trace (Negative) H Urine Ketones Negative (Negative) Urine Blood Negative /uL (Negative) Urine Nitrite 2+ (Negative) H Urine Bilirubin Negative (Negative) Urine Urobilinogen Normal mg/dL (Negative) Urine Leukocyte Esterase 1+ /uL (Negative) Urine RBC 1 /hpf (0 - 4) Urine Microscopic WBC 11 /HPF (0-5) H Urine Squamous Epithelial Cells None seen /hpf (<5) Urine Bacteria Few /hpf (None Seen) H Urine Yeast (Budding) Occasional /hpf (None Urine Glucose 3+ mg/dL (Normal) H Microbiology Microbiology Date/Time Source Procedure Growth Status 06/20/24 10:50 Blood Blood Culture - Preliminary NO GROWTH AFTER 24 HOURS OF INCUBATION. Resulted Labs and/or images reviewed: Labs reviewed by me, Image(s) reviewed by me Assessment/Plan Assessment/Plan Acute abdominal pain Acute pyelonephritis Acute urinary tract infection: Cultures negative Urine cultures pending Rocephin Diabetes Hypercholesterolemia Constipation: Lactulose CT abdomen pelvis without contrast partial small bowel obstruction, surgical consult by Dr. Richy Mendoza appreciated Still complaining of pain and nausea, Clear liquid diet and advanced diet as tolerated Plan discussed with: Patient My Orders Orders - PAUL POLANCO MD Procedure Category Date Status Time Ct Ab Pel Wo Con-No CT 06/21/24 Resulted Oral Or Iv 11:55 Initiate Vte CLARICE 06/21/24 In Process Prophylaxis 12:17 Urine Bacterial JIM 06/21/24 In Process Culture 14:30 Sodium Chloride 0.9% PHA 06/21/24 In Process 13:00 * Surgical Consult CONS 06/21/24 Transmitted Date of Service: Jun 22, 2024 Billing Provider: PAUL POLANCO MD Common Visit Codes: [id number] INP/OBS CARE(HIGH) PAUL POLANCO MD Jun 22, 2024 08:36
[2024-06-22 08:46] VITALS: BP 125/74; PULSE 80; RESP 16; TEMP 98.1; O2SAT 94
[2024-06-22 13:00] VITALS: BP 151/79; PULSE 73; RESP 18; TEMP 98.5; O2SAT 93
[2024-06-22 17:00] VITALS: BP 156/85; PULSE 75; RESP 16; TEMP 97.3; O2SAT 95
[2024-06-22] MEDS: DOCUSATE SOD 100 MG CAP PO PRN (20:20)
[2024-06-22 21:00] VITALS: BP 143/79; PULSE 72; RESP 18; TEMP 97.3; O2SAT 95
[2024-06-23] VITALS (8 sets, daily range): BP systolic 116–169; BP diastolic 50–81; PULSE 77–81; RESP 14–18; TEMP 97.3–98.6; O2SAT 92–96
[2024-06-23] MEDS: LACTULOSE 20Gm/30ML SOLN PO PRN (09:25)
--- NOTE | 2024-06-23 09:38 | DVHPN2 ---
Reviewed: Care Plan, H&P, Labs, Medications, Previous Orders, Radiology Changes from previous H/P or p: No Changes Eyes: No Pain, No Vision change, No Conjunctivae inflammation, No Eyelid inflammation, No Other, No Redness ENT: No Ear pain, No Ear discharge, No Nose pain, No Nose discharge, No Nose congestion, No Mouth pain, No Mouth swelling, No Throat pain, No Throat swelling, No Other Cardiovascular: No Chest Pain, No Palpitations, No Orthopnea, No Paroxysmal Noc. Dyspnea, No Edema, No Lt Headedness, No Other Respiratory: No Cough, No Dry, No Shortness of breath, No SOB with excertion, No Wheezing, No Hemoptysis, No Pleuritic Pain, No Sputum, No Other Gastrointestinal: No Nausea, No Vomiting, No Abdominal Pain, No Diarrhea, No Constipation, No Melena, No Hematochezia, No Other Genitourinary: Dysuria; No Frequency, No Incontinence, No Hematuria, No Retention; Other (pelvic pain) Musculoskeletal: No other, No neck pain, No shoulder pain, No arm pain, No back pain, No hand pain, No leg pain, No foot pain Skin: No Rash, No Lesions, No Jaundice, No Bruising, No Other Objective Vitals Vital Signs Date Time Temp Pulse Resp B/P (MAP) Pulse Ox O2 Delivery O2 Flow Rate FiO2 06/23/24 08:55 98.0 81 16 123/50 (74) 93 98.0 06/22/24 20:00 Room Air* 0 21 Intake/Output Intake and Output 06/23/24 07:00 Intake Total 2080 ml Balance 2080 ml Intake Oral 1030 ml IV Total 1050 ml # Voids 7 Medications Current Medications Medications Dose Ordered Sig/Lion Route Start Time Stop Time Status Last Admin Dose Admin Acetaminophen/ Hydrocodone Bitart 1 tab Q4HP PRN PO 06/20/24 11:30 06/22/24 04:09 1 TAB Ondansetron HCl 4 mg Q4HP PRN IV 06/20/24 11:30 Docusate Sodium 100 mg BIDPRN PRN PO 06/20/24 11:30 06/22/24 20:20 100 MG Acetaminophen 650 mg Q6HP PRN PO 06/20/24 11:30 Ceftriaxone Sodium 50 ml @ 100 mls/hr DAILY@09 IV 06/21/24 09:00 06/23/24 09:12 100 MLS/HR Diagnostic Test (Pha) 1 strip ACHS 06/20/24 11:30 06/23/24 06:31 1 STRIP Insulin Human Regular HS SC 06/20/24 22:00 06/22/24 22:03 6 UNITS Insulin Human Regular AC SC 06/20/24 11:30 06/22/24 12:26 6 UNITS Dextrose 50 ml UD PRN IV 06/20/24 11:30 Glipizide 10 mg BID PO 06/20/24 22:00 06/23/24 09:16 10 MG Lactulose 30 ml DAILY PRN PO 06/20/24 11:45 06/23/24 09:25 30 ML Sodium Chloride 1,000 ml @ 150 mls/hr Q6H40M IV 06/21/24 13:00 06/23/24 05:45 150 MLS/HR Laboratory Results Laboratory Tests 06/21/24 05:34 Urinalysis Test 06/20/24 08:16 Urine Color Colorless (Yellow) Urine Clarity Clear (Clear) Urine pH 6.0 (5.0-9.0) Urine Specific [place] 1.007 (1.001-1.035) Urine Protein Trace (Negative) H Urine Ketones Negative (Negative) Urine Blood Negative /uL (Negative) Urine Nitrite 2+ (Negative) H Urine Bilirubin Negative (Negative) Urine Urobilinogen Normal mg/dL (Negative) Urine Leukocyte Esterase 1+ /uL (Negative) Urine RBC 1 /hpf (0 - 4) Urine Microscopic WBC 11 /HPF (0-5) H Urine Squamous Epithelial Cells None seen /hpf (<5) Urine Bacteria Few /hpf (None Seen) H Urine Yeast (Budding) Occasional /hpf (None Urine Glucose 3+ mg/dL (Normal) H Microbiology Microbiology Date/Time Source Procedure Growth Status 06/21/24 14:30 Voided Urine Urine Culture - Preliminary Resulted 06/20/24 10:50 Blood Blood Culture - Preliminary NO GROWTH AFTER 48 HOURS OF INCUBATION. Resulted Labs and/or images reviewed: Labs reviewed by me, Image(s) reviewed by me Assessment/Plan Assessment/Plan Acute abdominal pain Acute pyelonephritis Acute urinary tract infection: Blood Cultures negative Urine cultures pending Rocephin Diabetes Hypercholesterolemia Constipation: Lactulose CT abdomen pelvis without contrast partial small bowel obstruction, surgical consult by Dr. Richy Mendoza appreciated Still complaining of pain and nausea, Clear liquid diet and advanced diet as tolerated Plan discussed with: Patient Date of Service: Jun 23, 2024 Billing Provider: PAUL POLANCO MD Common Visit Codes: [id number] INP/OBS CARE(HIGH) PAUL POLANCO MD Jun 23, 2024 09:38
--- NOTE | 2024-06-23 12:50 | DVHPN2 ---
Progress Note Date Seen: Jun 23, 2024 Medical Necessity Reason Pt with a Central, PICC or Fol: No Objective vital signs Vital Sign Date Time Temp Pulse Resp B/P (MAP) Pulse Ox O2 Delivery O2 Flow Rate FiO2 06/23/24 08:55 98.0 81 16 123/50 (74) 93 98.0 06/23/24 08:00 Room Air* 0 21 Total Intake and Output 06/22/24 06/22/24 06/23/24 15:00 23:00 07:00 Intake Total 50 ml 550 ml 1480 ml Balance 50 ml 550 ml 1480 ml medications Current Medications Medications Dose Ordered Sig/Lion Route Start Time Stop Time Status Last Admin Dose Admin Acetaminophen/ Hydrocodone Bitart 1 tab Q4HP PRN PO 06/20/24 11:30 06/22/24 04:09 1 TAB Ondansetron HCl 4 mg Q4HP PRN IV 06/20/24 11:30 Docusate Sodium 100 mg BIDPRN PRN PO 06/20/24 11:30 06/22/24 20:20 100 MG Acetaminophen 650 mg Q6HP PRN PO 06/20/24 11:30 Ceftriaxone Sodium 50 ml @ 100 mls/hr DAILY@09 IV 06/21/24 09:00 06/23/24 09:12 100 MLS/HR Diagnostic Test (Pha) 1 strip ACHS 06/20/24 11:30 06/23/24 12:39 1 STRIP Insulin Human Regular HS SC 06/20/24 22:00 06/22/24 22:03 6 UNITS Insulin Human Regular AC SC 06/20/24 11:30 06/23/24 12:40 3 UNITS Dextrose 50 ml UD PRN IV 06/20/24 11:30 Glipizide 10 mg BID PO 06/20/24 22:00 06/23/24 09:16 10 MG Lactulose 30 ml DAILY PRN PO 06/20/24 11:45 06/23/24 09:25 30 ML Sodium Chloride 1,000 ml @ 150 mls/hr Q6H40M IV 06/21/24 13:00 06/23/24 05:45 150 MLS/HR laboratory and microbiology Laboratory Tests 06/21/24 05:34 Test 06/21/24 05:34 Range/Units Serum Glucose 80 74-106 mg/dL Microbiology Date/Time Source Procedure Growth Status 06/21/24 14:30 Voided Urine Urine Culture - Preliminary Resulted 06/20/24 10:50 Blood Blood Culture - Preliminary NO GROWTH AFTER 72 HOURS OF INCUBATION. Resulted Problem List/Assessment/Plan Problem List/Assessment/Plan AFEBRILE VSS ABD SOFT BM + RESOLVING SBO NO INDICATION FOR URGENT SURGERY ADVANCE DIET ASHLEY Plan discussed with: Other ANGELO MOE MD Jun 23, 2024 12:50
[2024-06-24 01:00] VITALS: BP 154/69; PULSE 73; RESP 18; TEMP 98.5; O2SAT 95
[2024-06-24 05:00] VITALS: BP 141/74; PULSE 70; RESP 16; TEMP 98.6; O2SAT 93
[2024-06-24 08:00] VITALS: BP 162/85; PULSE 78; RESP 17; TEMP 97.9; O2SAT 97
[2024-06-24] MEDS ORDERED: DICY10CA PO (08:40)
[2024-06-24] MEDS ORDERED: LEVO500T91 PO (08:40)
--- NOTE | 2024-06-24 08:42 | DVHPN2 ---
Reviewed: Care Plan, H&P, Labs, Medications, Previous Orders, Radiology Changes from previous H/P or p: No Changes Eyes: No Pain, No Vision change, No Conjunctivae inflammation, No Eyelid inflammation, No Other, No Redness ENT: No Ear pain, No Ear discharge, No Nose pain, No Nose discharge, No Nose congestion, No Mouth pain, No Mouth swelling, No Throat pain, No Throat swelling, No Other Cardiovascular: No Chest Pain, No Palpitations, No Orthopnea, No Paroxysmal Noc. Dyspnea, No Edema, No Lt Headedness, No Other Respiratory: No Cough, No Dry, No Shortness of breath, No SOB with excertion, No Wheezing, No Hemoptysis, No Pleuritic Pain, No Sputum, No Other Gastrointestinal: No Nausea, No Vomiting, No Abdominal Pain, No Diarrhea, No Constipation, No Melena, No Hematochezia, No Other Genitourinary: Dysuria; No Frequency, No Incontinence, No Hematuria, No Retention; Other (pelvic pain) Musculoskeletal: No other, No neck pain, No shoulder pain, No arm pain, No back pain, No hand pain, No leg pain, No foot pain Skin: No Rash, No Lesions, No Jaundice, No Bruising, No Other Objective Vitals Vital Signs Date Time Temp Pulse Resp B/P (MAP) Pulse Ox O2 Delivery O2 Flow Rate FiO2 06/24/24 08:00 97.9 78 17 162/85 (110) 97 97.9 06/23/24 20:00 Room Air* 0 21 Intake/Output Intake and Output 06/24/24 07:00 Intake Total 1650 ml Balance 1650 ml Intake Oral 1600 ml IV Total 50 ml # Voids 3 # Bowel Movements 1 Medications Current Medications Medications Dose Ordered Sig/Lion Route Start Time Stop Time Status Last Admin Dose Admin Acetaminophen/ Hydrocodone Bitart 1 tab Q4HP PRN PO 06/20/24 11:30 06/22/24 04:09 1 TAB Ondansetron HCl 4 mg Q4HP PRN IV 06/20/24 11:30 Docusate Sodium 100 mg BIDPRN PRN PO 06/20/24 11:30 06/23/24 13:10 100 MG Acetaminophen 650 mg Q6HP PRN PO 06/20/24 11:30 Ceftriaxone Sodium 50 ml @ 100 mls/hr DAILY@09 IV 06/21/24 09:00 06/23/24 09:12 100 MLS/HR Diagnostic Test (Pha) 1 strip ACHS 06/20/24 11:30 06/24/24 06:01 1 STRIP Insulin Human Regular HS SC 06/20/24 22:00 06/22/24 22:03 6 UNITS Insulin Human Regular AC SC 06/20/24 11:30 06/23/24 12:40 3 UNITS Dextrose 50 ml UD PRN IV 06/20/24 11:30 Glipizide 10 mg BID PO 06/20/24 22:00 06/23/24 23:48 10 MG Lactulose 30 ml DAILY PRN PO 06/20/24 11:45 06/23/24 09:25 30 ML Sodium Chloride 1,000 ml @ 150 mls/hr Q6H40M IV 06/21/24 13:00 06/24/24 01:00 150 MLS/HR Laboratory Results Laboratory Tests 06/21/24 05:34 Urinalysis Test 06/20/24 08:16 Urine Color Colorless (Yellow) Urine Clarity Clear (Clear) Urine pH 6.0 (5.0-9.0) Urine Specific [place] 1.007 (1.001-1.035) Urine Protein Trace (Negative) H Urine Ketones Negative (Negative) Urine Blood Negative /uL (Negative) Urine Nitrite 2+ (Negative) H Urine Bilirubin Negative (Negative) Urine Urobilinogen Normal mg/dL (Negative) Urine Leukocyte Esterase 1+ /uL (Negative) Urine RBC 1 /hpf (0 - 4) Urine Microscopic WBC 11 /HPF (0-5) H Urine Squamous Epithelial Cells None seen /hpf (<5) Urine Bacteria Few /hpf (None Seen) H Urine Yeast (Budding) Occasional /hpf (None Urine Glucose 3+ mg/dL (Normal) H Microbiology Microbiology Date/Time Source Procedure Growth Status 06/21/24 14:30 Voided Urine Urine Culture - Preliminary Resulted 06/20/24 10:50 Blood Blood Culture - Preliminary NO GROWTH AFTER 72 HOURS OF INCUBATION. Resulted Labs and/or images reviewed: Labs reviewed by me, Image(s) reviewed by me Assessment/Plan Assessment/Plan Acute abdominal pain Acute pyelonephritis Acute urinary tract infection: Blood Cultures negative Urine cultures pending Rocephin Diabetes Hypercholesterolemia Constipation: Lactulose CT abdomen pelvis without contrast partial small bowel obstruction, surgical consult by Dr. Richy Mendoza appreciated Still complaining of pain and nausea, Clear liquid diet and advanced diet as tolerated Feels better and wants to go home Plan discussed with: Patient Date of Service: Jun 24, 2024 Billing Provider: PAUL POLANCO MD Common Visit Codes: [id number] INP/OBS CARE(HIGH) PAUL POLANCO MD Jun 24, 2024 08:42
--- NOTE | 2024-06-24 08:46 | DVHDS2 ---
Discharge Summary Date of Admission Jun 20, 2024 at 11:27 Date of Discharge: Jun 24, 2024 Admitting Diagnosis Abdominal pain nausea and vomiting Wounds: None Labs/Diagnostic Data: Laboratory Results Test 06/24/24 06:04 06/21/24 05:34 06/20/24 10:50 06/20/24 08:16 POC Glucose 119 mg/dl (70-106) White Blood Count 4.4 10^3/uL (4.4-10.8) Red Blood Count 3.26 10^6/uL (4.0-5.20) Hemoglobin 10.0 g/dL (12.2-16.2) Hematocrit 30.2 % (36.0-46.0) Mean Corpuscular Volume 92.6 fL (80.0-100.0) Mean Corpuscular Hemoglobin 30.7 pg (28.0-32.0) Mean Corpuscular Hemoglobin Concent 33.2 g/dL (32.0-36.0) Red Cell Distribution Width 12.8 % (11.8-14.3) Platelet Count 178 10^3/uL (140-450) Mean Platelet Volume 8.3 fL (6.9-10.8) Neutrophils (%) (Auto) 45.9 % (37.0-80.0) Lymphocytes (%) (Auto) 40.9 % (10.0-50.0) Monocytes (%) (Auto) 9.1 % (0.0-12.0) Eosinophils (%) (Auto) 3.6 % (0.0-7.0) Basophils (%) (Auto) 0.5 % (0.0-2.0) Neutrophils # (Auto) 2.0 10 ^3/uL (1.6-8.6) Lymphocytes # (Auto) 1.8 10 ^3/uL (0.4-5.4) Monocytes # (Auto) 0.4 10 ^3/uL (0-1.3) Eosinophils # (Auto) 0.2 10 ^3/uL (0-0.8) Basophils # (Auto) 0 10 ^3/uL (0-0.2) Nucleated Red Blood Cells 0.1 % Sodium Level 139 mmol/L (136-145) Potassium Level 5.0 mmol/L (3.5-5.1) Chloride Level 105 mmol/L (98-107) Carbon Dioxide Level 28 mmol/L (20-31) Anion Gap 6 (5-15) Blood Urea Nitrogen 33 mg/dL (9-23) Creatinine 2.00 mg/dL (0.550-1.02) Glomerular Filtration Rate Calc 27 mL/min (>90) BUN/Creatinine Ratio 16.5 (10.0-20.0) Serum Glucose 80 mg/dL (74-106) Calcium Level 9.2 mg/dL (8.7-10.4) Total Bilirubin 0.3 mg/dL (0.2-1.0) Aspartate Amino Transferase (AST) 14 U/L (13-40) Alanine Aminotransferase (ALT) 9 U/L (7-40) Alkaline Phosphatase 84 U/L (46-116) Total Protein 6.6 g/dL (5.7-8.2) Albumin 3.7 g/dL (3.2-4.8) Lipase 41 U/L (12-53) Lactic Acid Level 0.5 mmol/L (0.4-2.0) Urine Color Colorless (Yellow) Urine Clarity Clear (Clear) Urine pH 6.0 (5.0-9.0) Urine Specific [place] 1.007 (1.001-1.035) Urine Protein Trace (Negative) Urine Ketones Negative (Negative) Urine Blood Negative /uL (Negative) Urine Nitrite 2+ (Negative) Urine Bilirubin Negative (Negative) Urine Urobilinogen Normal mg/dL (Negative) Urine Leukocyte Esterase 1+ /uL (Negative) Urine RBC 1 /hpf (0 - 4) Urine Microscopic WBC 11 /HPF (0-5) Urine Squamous Epithelial Cells None seen /hpf (<5) Urine Bacteria Few /hpf (None Seen) Urine Yeast (Budding) Occasional /hpf (None Urine Glucose 3+ mg/dL (Normal) Other Laboratory Tests 06/21/24 05:34 Brief Hx & Hospital Course: 63-year-old female with a history of diabetes hypercholesterolemia came in for abdominal pain with the nausea found to have partial small bowel obstruction treated conservatively. Surgical consult by Dr. Mendoza also had mild urinary tract infection blood cultures negative urine cultures negative treated with Rocephin patient feels better with less nausea and abdominal pain and wants to go home. Discharged home on Levaquin and Bentyl. General Condition satisfactory at the time of discharge Consults/Reason for consult Surgeon Dr. Richy Mendoza Operations or Procedures CT abdomen pelvis without contrast Condition at Discharge: Fair Final Diagnosis/Problems List Acute abdominal pain Acute pyelonephritis Acute urinary tract infection: Blood Cultures negative Urine cultures pending Rocephin Diabetes Hypercholesterolemia Constipation: Lactulose CT abdomen pelvis without contrast partial small bowel obstruction, surgical consult by Dr. Richy Mendoza appreciated Still complaining of pain and nausea, Clear liquid diet and advanced diet as tolerated Feels better and wants to go home Discharge Disposition: Home Discharge Instruct/Medications Diet: Regular Activity: Light activity Follow Up/Referral: Follow up with your primary Medications: Levaquin Bentyl 35 (Time Taken for discharge summary 35 minutes) Discharge Statement: "Patient was advised to return to the ER or call 911 if any headaches, dizziness, shortness of breath, chest pain, abdominal pain, bleeding, fevers, or worsening of medical condition. Patient was counseled about treatment plan, medications, possible side effects, patientverbalized understanding. All questions were answered to the best of my ability. This discharge took greater then 30 minutes in planning, reviewing documentation, counseling the patient, and discussing with other team members." ASSESSMENT ASSESSMENT Hospital Course Improved Assessment Acute abdominal pain Acute pyelonephritis Acute urinary tract infection: Blood Cultures negative Urine cultures pending Rocephin Diabetes Hypercholesterolemia Constipation: Lactulose CT abdomen pelvis without contrast partial small bowel obstruction, surgical consult by Dr. Richy Mednoza appreciated Still complaining of pain and nausea, Clear liquid diet and advanced diet as tolerated Feels better and wants to go home Date of Service: Jun 24, 2024 Billing Provider: PAUL POLANCO MD Common Visit Codes: 35061-SWN/OBS DISCH DAY >30min PAUL POLANCO MD Jun 24, 2024 08:46
[2024-06-24 11:48] VITALS: BP 155/79; PULSE 79; RESP 16; TEMP 97.6; O2SAT 94
[2024-06-24 13:07] VITALS: BP 155/79; PULSE 79; RESP 16; TEMP 97.6; O2SAT 94
[2024-06-24 13:37] VITALS: BP 144/77; PULSE 78; RESP 17; TEMP 97.9; O2SAT 97
== END 2024-06-24 14:50 | disposition home or self-care (01) | DRG 690 ==
LOC: ER 08:11 → OVERFLOW 11:27 → EAST 21:28
PROVIDERS: ADMIT Family Medicine; ATTEND Family Medicine
DX: N10 Acute pyelonephritis (principal); K56.600 Partial intestinal obstruction, unspecified as to cause; N17.9 Acute kidney failure, unspecified; K59.00 Constipation, unspecified; N18.9 Chronic kidney disease, unspecified; E78.00 Pure hypercholesterolemia, unspecified; E11.22 Type 2 diabetes mellitus with diabetic chronic kidney disease; Z79.4 Long term (current) use of insulin; Z79.899 Other long term (current) drug therapy; Z83.3 Family history of diabetes mellitus
CPT/HCPCS: 36415; 74018; 74176; 80048; 80053; 81001; 82962; 83605; 83690; 85025; 87040; 87086; 96361; 96365; 96375; G0378; J0692; J1815